=== PATIENT | male | born 1970 | race Caucasian/White ===

== ENCOUNTER 2017-09-05 16:37 | Emergency (ER) | payer OTHER ==
[~2017-09-05] VITALS: Ht 160 cm; Wt 70.0 kg
--- NOTE | 2017-09-05 17:34 | PD ---
HPI Time Seen by Provider: 17:33 Priya Paulino MD Sep 05, 2017 17:34
[2017-09-05 17:40] VITALS: BP 140/79; PULSE 72; RESP 16; O2SAT 98
--- NOTE | 2017-09-05 18:07 | PD ---
HPI Chief Complaint: Injury Time Seen by Provider: 17:38 Travel History International Travel<30 days: No Contact w/Intl Traveler<30days: No Traveled to known affect area: No History of Present Illness HPI 46-year-old male presents to the emergency department in custody from the [facility] for evaluation of right wrist injury after injuring it while playing soccer. Said he was falling backwards and braced himself injuring his wrist. He did not hit his head or lose consciousness. No neck pain or back pain. He is also complaining of pain just below his thumb. He was given Toradol 60 mg IM at the institution. A temporary wrist splint was applied and an arm sling is in place. Patient denies paresthesias, loss of sensation to the affected extremity. Rates pain 5/10. Says the Toradol helped with the pain. Primary care provider is provided to the correctional facility. No known allergies. Denies significant past medical history. Has no other medical complaints. No other modifying factors or associated signs and symptoms. [facility] Social History Tobacco Use: No Allergies-Medications (Allergen,Severity, Reaction): Coded Allergies: No Known Allergies (Unverified , 09/05/17) Reported Meds & Prescriptions Reported Meds & Active Scripts Active Ibuprofen 800 Mg Tab 800 Mg PO Q6HR PRN Review of Systems Except as stated in HPI: all other systems reviewed are Neg Physical Exam Narrative GENERAL: Well-nourished, well-developed male patient, in no acute distress SKIN: Warm and dry. HEAD: Atraumatic. Normocephalic. EYES: Pupils equal and round. No scleral icterus. No injection or drainage. ENT: Mucosa pink and moist. Airway patent. NECK: Trachea midline. CARDIOVASCULAR: Regular rate. RESPIRATORY: No accessory muscle use. GASTROINTESTINAL: Male. MUSCULOSKELETAL: Right wrist with tenderness on palpation; no erythema ; mild edema; unable to assess range of motion. Right hand with tenderness on palpation to thenar eminence area. Right upper extremity is supple and non- tense with 2+ radial pulse and sensory intact. No obvious deformities. No clubbing. No cyanosis. NEUROLOGICAL: Awake and alert. Oriented 3. No obvious cranial nerve deficits. Motor grossly within normal limits. Normal speech. PSYCHIATRIC: Appropriate mood and affect; insight and judgment normal. Data Data Last Documented VS Vital Signs Date Time Temp Pulse Resp B/P (MAP) Pulse Ox O2 Delivery O2 Flow Rate FiO2 09/05/17 17:40 72 16 140/79 (99) 98 Orders Orders Hand, Complete ([id number]) (09/05/17 17:58) Wrist, Complete ([id number]) (09/05/17 17:58) Ice/Cold Pack (09/05/17 17:58) Splinting (09/05/17 ) Support Splint (09/05/17 19:31) Ed Discharge Order (09/05/17 19:36) Oxycodone-Acetamin 5-325 Mg (Percocet (09/05/17 19:45) Sling Cradle Arm (09/05/17 ) Fiberglass Sugartong Sp Ad Arm (09/05/17 ) MDM Medical Decision Making Medical Screen Exam Complete: Yes Emergency Medical Condition: Yes Medical Record Reviewed: Yes Differential Diagnosis Fracture, sprain, dislocation Narrative Course 46-year-old male with right hand and wrist injury. He is here from a [place] correctional facility. He is accompanied by guards from the correction facility also. Patient was given Toradol IM 60 mg prior to coming to ER for evaluation. Right hand and right wrist x-ray ordered. Ice pack provided. 1899: Report given to REGIS Nagy at change of shift. See her note for final patient disposition. Scripts Ibuprofen (Ibuprofen) 800 Mg Tab 800 MG PO Q6HR Y for PAIN, #40 TAB 0 Refills Prov: Gaby Garza 09/05/17 Rachael Mchugh Sep 05, 2017 18:07
--- NOTE | 2017-09-05 19:20 | RADRPT ---
EXAM DATE/TIME: 09/05/2017 18:26 [facility] COMPARISON: No previous studies available for comparison. INDICATIONS : Right hand pain post fall MEDICAL HISTORY : None. SURGICAL HISTORY : None. ENCOUNTER: Initial ACUITY: 1 day PAIN SCORE: 10/10 LOCATION: Right entire hand FINDINGS: Three view examination of the right hand demonstrates no soft tissue swelling, dislocation, or fractu re. Minimally impacted fracture distal radius. The interphalangeal and metacarpophalangeal joints a re intact. Bony mineralization is normal. CONCLUSION: Impacted fracture distal radius. Carpus intact. Romulo Christianson MD FACR on September 05, 2017 at 19:17 Board Certified Radiologist. This report was verified electronically.
--- NOTE | 2017-09-05 19:22 | RADRPT ---
EXAM DATE/TIME: 09/05/2017 18:26 [facility] COMPARISON: No previous studies available for comparison. INDICATIONS : Right wrist pain post fall today MEDICAL HISTORY : None. SURGICAL HISTORY : None. ENCOUNTER: Initial ACUITY: 1 day PAIN SCORE: 10/10 LOCATION: Right entire wrist FINDINGS: Impacted fracture distal radius. Carpus and ulnar styloid intact. CONCLUSION: Nondisplaced impacted fracture distal radius without angulation. Alignment across ra diocarpal joint is near-anatomic. Romulo Christianson MD FACR on September 05, 2017 at 19:17 Board Certified Radiologist. This report was verified electronically.
[2017-09-05] MEDS ORDERED: IBUP1TAB7 PO (19:35)
--- NOTE | 2017-09-05 19:36 | PD ---
Physical Exam Date Seen by Provider: Sep 05, 2017 Time Seen by Provider: 19:32 Narrative For full history and physical examination please see previous providers note. I assumed care of this patient change his shift, at that time imaging was pending. Data Data Last Documented VS Vital Signs Date Time Temp Pulse Resp B/P (MAP) Pulse Ox O2 Delivery O2 Flow Rate FiO2 09/05/17 17:40 72 16 140/79 (99) 98 Orders Orders Hand, Complete ([id number]) (09/05/17 17:58) Wrist, Complete ([id number]) (09/05/17 17:58) Ice/Cold Pack (09/05/17 17:58) Splinting (09/05/17 ) Support Splint (09/05/17 19:31) MDM Medical Record Reviewed: Yes Supervised Visit with LUPILLO: No Interpretation(s) Last Impressions Wrist X-Ray 09/05/171757 Signed Impressions: Service Date/Time: Tuesday, September 05, 2017 18:26 - CONCLUSION: Nondisplaced impacted fracture distal radius without angulation. Alignment across radiocarpal joint is near-anatomic. Romulo Christianson MD FACR Hand X-Ray 09/05/171757 Signed Impressions: Service Date/Time: Tuesday, September 05, 2017 18:26 - CONCLUSION: Impacted fracture distal radius. Carpus intact. Romulo Christianson MD FACR Vital Signs Date Time Temp Pulse Resp B/P (MAP) Pulse Ox O2 Delivery O2 Flow Rate FiO2 09/05/17 17:40 72 16 140/79 (99) 98 Narrative Course Patient presented for evaluation of wrist pain after fall onto an outstretched hand. X-ray shows A Nondisplaced impacted fracture distal radius without angulation. Alignment across radiocarpal joint is near-anatomic per radiology report. Patient be placed in a sugar tong splint and sling. He will follow-up with orthopedic surgeon. He will be given ibuprofen for pain control. Patient is encouraged to return to emergency department for any new or worsening symptoms. Patient stable for discharge. Diagnosis Primary Impression: Distal radius fracture Qualified Codes: S52.591A - Other fractures of lower end of right radius, initial encounter for closed fracture Referrals: Orthopaedic Surgeon 1 week Patient Instructions: General Instructions, Wrist Fracture in Adults (ED) Additional Instruction: Follow-up with orthopedic surgeon Keep extremity elevated Take medication as needed and as directed for pain Return to emergency department for any new or worsening symptoms Med/Other Pt SpecificInfo: Prescription(s) given Scripts Ibuprofen (Ibuprofen) 800 Mg Tab 800 MG PO Q6HR Y for PAIN, #40 TAB 0 Refills Prov: Gaby Garza 09/05/17 Disposition: [address] LAW ENFORCEMNT Condition: Stable Gaby Garza Sep 05, 2017 19:36
[2017-09-05] MEDS ORDERED: oxyCODONE/ACETAMINOPHEN 5 MG/325 MG TAB PO ONE (19:45)
== END 2017-09-05 19:45 ==
LOC: NEPD 16:37
DX: S52.501A Unspecified fracture of the lower end of right radius, initial encounter for closed fracture (principal); W18.30XA Fall on same level, unspecified, initial encounter; Y93.66 Activity, soccer
CPT/HCPCS: 29125; 73110; 73130